=== PATIENT | male | born 1975 | race Caucasian/White ===

== ENCOUNTER → 2016-07-19 | Outpatient (CLI) | payer BC ==
[~2016-07-19] MED LIST: IBUP-1050 PO; NAPR1TAB9 PO; OMEG10007 PO; PRLSR20 PO; RANI150T3 PO
--- NOTE | 2016-07-19 08:38 | DIAGNOSTIC IMAGING REPORT ---
ABDOMEN COMPLETE (US) CLINICAL HISTORY: Abdominal pain. Kidney stones. Nausea. COMPARISON STUDY: No previous studies for comparison. FINDINGS: The liver is echogenic. A hypoechoic focus within the liver in the gallbladder fossa suggests fatty sparing. There is no biliary ductal dilatation. No gallstones are identified. The gallbladder is normal. The pancreas is obscured by overlying bowel gas. The size of the spleen is normal. The right kidney measures 10.7 cm and the left measures 11.2 cm. No calculi are identified by sonography. There is no hydronephrosis. Both ureteral jets were identified. The aorta was largely obscured on this exam. IMPRESSION: 1. Fatty liver. 2. No gallstones or biliary ductal dilatation. 3. No hydronephrosis. 4. Largely obscured pancreas and abdominal aorta. Electronically signed by: Darryl Epstein M.D. 07/19/2016 8:36 AM
[2016-07-19 11:05] LABS: BASO % 0.6 %; BASO ABS # 0.04 K/uL (0-0.2); COMPLETE YES; EOS % 1.7 %; HEMATOCRIT 42.8 % (42-52); IG% 0.8 %; LYMPH % 20.2 %; LYMPH ABS # 1.45 K/uL (1.2-3.4); MEAN CELL VOLUME 89.4 fL (80-100); MEAN CORPUSCULAR HEMOGLOBIN 31.5 pg (25-34); MEAN CORPUSCULAR HGB CONC 35.3 g/dl (32-36); MEAN PLATELET VOLUME 11.5 fL (7.4-10.4); MONO % 9.2 %; NEUT % 67.5 %; PLATELET COUNT 207 K/uL (130-400); RED BLOOD COUNT 4.79 M/uL (4.7-6.1); WHITE BLOOD COUNT 7.18 K/uL (4.8-10.8)
[2016-07-19 11:13] LABS: URINE APPEARANCE CLEAR (CLEAR); URINE BILIRUBIN NEG (NEG); URINE COLOR YELLOW; URINE NITRITE NEG (NEG); URINE PH 5.5 (4.5-7.5); URINE SPECIFIC GRAVITY 1.022 (1.000-1.030); UROBILINOGEN NEG (NEG); ZZUR CULT IF INDIC CLEAN CATCH NO
[2016-07-19 11:27] LABS: MANUAL MICROSCOPIC REQUIRED? NO; REVIEW REQ? NO
[2016-07-19 11:34] LABS: ALT/SGPT 27 U/L (12-78); BLOOD UREA NITROGEN 17 mg/dl (7-18); BUN/CREATININE RATIO 15.5 (10-20); CALCIUM 8.6 mg/dl (8.5-10.1); CARBON DIOXIDE 28 mmol/L (21-32); CHLORIDE 105 mmol/L (98-107); GLUCOSE 87 mg/dl (70-99); POTASSIUM 3.9 mmol/L (3.5-5.1); SODIUM 142 mmol/L (136-145)
[2016-07-19 11:37] LABS: ALB/GLOB RATIO 1.3 (0.9-2); ALKALINE PHOSPHATASE 77 U/L (45-117); AST/SGOT 18 U/L (15-37); CHOLESTEROL 187 mg/dl (0-200); CHOLESTEROL/HDL RATIO 4.5; HDL CHOLESTEROL 42 mg/dl; LDL CHOLESTEROL CALCULATED 124 mg/dl; TRIGLYCERIDES 104 mg/dl (0-150); VERY LOW DENSITY LIPOPROT CALC 21 mg/dl
== END | disposition home or self-care (01) ==
LOC: C.ULTRBC 08:01
PROVIDERS: ATTEND Internal Medicine Geriatric Medicine
DX: Z00.00 Encounter for general adult medical examination without abnormal findings (principal); N20.0 Calculus of kidney; R11.0 Nausea; K76.0 Fatty (change of) liver, not elsewhere classified

== ENCOUNTER → 2016-09-26 | Outpatient (CLI) | payer BC ==
[2016-09-26 13:30] LABS: BASO % 0.4 %; BASO ABS # 0.03 K/uL (0-0.2); COMPLETE YES; EOS % 1.7 %; HEMATOCRIT 46.4 % (42-52); IG% 1.6 %; LYMPH % 21.9 %; LYMPH ABS # 1.64 K/uL (1.2-3.4); MEAN CELL VOLUME 89.4 fL (80-100); MEAN CORPUSCULAR HGB CONC 35.8 g/dl (32-36); MEAN PLATELET VOLUME 11.4 fL (7.4-10.4); MONO % 9.7 %; NEUT % 64.7 %; PLATELET COUNT 219 K/uL (130-400); RED BLOOD COUNT 5.19 M/uL (4.7-6.1); WHITE BLOOD COUNT 7.49 K/uL (4.8-10.8)
[2016-09-26 13:43] LABS: PARTIAL THROMBOPLASTIN RATIO 1.1; PROTHROMBIN TIME (PATIENT) 10.7 SECONDS (9.0-12.0)
[2016-09-26 13:58] LABS: POTASSIUM 3.9 mmol/L (3.5-5.1)
== END | disposition home or self-care (01) ==
LOC: C.LABBC 09:26
DX: Z01.818 Encounter for other preprocedural examination (principal)

== ENCOUNTER → 2016-10-01 | Day surgery (SDC) | payer BC ==
[2016-09-27 09:15] VITALS: Ht 174 cm; Wt 118.2 kg
[~2016-10-01] VITALS: Ht 174 cm; Wt 118.2 kg
[~2016-10-01] MED LIST changes: +ATROPINE SULFATE 0.1 MG/ML 5ML SYR IV PRN; +CEFAZOLIN 2000 MG/60 ML D5W IV SCH; +DEXAMETHASONE SOD INJ 4 MG/ML VIAL ONE; +EpHEDrine SULFATE INJ 50 MG/ML AMP IV PRN; +EpINEphrine INJ 1MG/ML AMP 1 MG/ML AMP ONE; +FENTANYL CITRATE INJ 50 MCG/1 ML 2 ML VIAL IV PRN; +FENTANYL CITRATE INJ 50 MCG/1 ML 2 ML VIAL ONE; +HYDROCODONE/ACETAMOPHEN 5/325MG TAB PO PRN; +HydrALAZINE HCL 20 MG/ML VIAL IV. PRN; +HydrALAZINE HCL 20 MG/ML VIAL ONE; +LACTATED RINGER'S 1000ML 1,000 ML IV SCH; +LIDOCAINE 4% MPF SOAK 5 ML = 1 DOSE TOP ONE; +LIDOCAINE HCL 2% 2 ML VIAL (20MG/ML) ONE; +LIDOCAINE/EPINEPHRINE 1% INJ 50 ML VIAL ONE; +MIDAZOLAM HCL 1 MG/ML 2ML VIAL ONE; -OMEG10007 PO; +ONDANSETRON INJ 2 MG/ML 2 ML VIAL IV PRN; +ONDANSETRON INJ 2 MG/ML 2 ML VIAL ONE; +OXYMETAZOLINE HCL 0.05% NA SPR 15 ML BTL PRN; +OXYMETAZOLINE HCL 0.05% NA SPR 15 ML BTL SCH; +PROPOFOL IV EMULSION 10 MG/ML 20 ML VIAL IV ONE; -RANI150T3 PO; +STERILE IRRIGATING SOLUTION (BSS) 15ML FLUSH ONE
--- NOTE | 2016-10-01 11:45 | History & Physical Bridge - [place] ---
H&P Re-Evaluation Bridge Note: I have examined the patient, reviewed the History & Physical and in the interval since the performance of the History & Physical I have noted the following changes of clinical significance: No changes noted
--- NOTE | 2016-10-01 13:47 | [facility] Operative Report ---
Operative Report Operative Date Oct 01, 2016. Pre-Operative Diagnosis Deviated Nasal Septum, Hypertrophy of Inferior Nasal Turbinates Post-Operative Diagnosis Same Procedure(s) Performed Septoplasty And Bilateral Inferior Turbinate Outfracture And Turbinoplasty Surgeon Dr. Thomas Dbas Surgeon(s) None Estimated Blood Loss 25 mL Findings 1. SEVERE LEFT ANTERIOR SEPTAL DEVIATION WITH EXTENSIVE SCARRING INVOLVING THIS REGION 2. R>L INFERIOR TURBINATE HYPERTROPHY Specimens None I attest to the content of the Intraoperative Record and any orders documented therein. Any exceptions are noted below.
--- NOTE | 2016-10-01 13:48 | Discharge Instructions ---
Discharge Instructions Date of Service Oct 01, 2016. Admission Reason for Admission: Deviated Septum, Hypertrophy Inferior Nasal Turbs Discharge Discharge Diagnosis / Problem: SAME Discharge Goals Goal(s): Improve function Activity Recommendations Activity Limitations: as noted below LIGHT ACTIVITY FOR 2WEEKS; NO NOSE BLOWING FOR 2WEEKS; NO DRIVING WHILE ON NARCOTIC PAIN MEDS . Current Hospital Diet Patient's current hospital diet: Discharge Diet Recommended Diet: Regular Diet Procedures Procedures Performed: Septoplasty And Bilateral Inferior Turbinate Outfracture And Turbinoplasty Pending Studies Studies pending at discharge: no Laboratory Results Lipid Panel Test 07/19/16 08:32 Range/Units Triglycerides Level 104 0-150 mg/dl Cholesterol Level 187 0-200 mg/dl HDL Cholesterol 42 mg/dl Cholesterol/HDL Ratio 4.5 LDL Cholesterol, Calculated 124 mg/dl Medical Emergencies . Who to Call and When: Medical Emergencies: If at any time you feel your situation is an emergency, please call 911 immediately. . Non-Emergent Contact Non-Emergency issues call your: Surgeon . . "Provider Documentation" section prepared by Matthew Thomas. VTE Core Measure Inpt VTE Proph given/why not?: SCD's
[2016-10-01 14:21] VITALS: TEMP 36.4
[2016-10-01 14:58] VITALS: BP 132/83; PULSE 83; O2SAT 98
--- NOTE | 2016-10-01 15:03 | Anesthesia Progress Nt - [facility] ---
Anesthesia Post Op Note Date & Time Oct 01, 2016 at 15:03 Vital Signs Pain Intensity: 3.0 Vital Signs Past 12 Hours Date Time Temp Pulse Resp B/P Pulse Ox O2 Delivery O2 Flow Rate FiO2 10/01/16 14:21 36.4 97 16 133/56 94 Room Air 10/01/16 14:20 79 14 115/79 95 10/01/16 14:17 88 18 10/01/16 14:17 87 18 94 10/01/16 14:17 36.4 10/01/16 14:15 127/87 10/01/16 14:12 85 15 93 10/01/16 14:12 87 15 10/01/16 14:10 121/87 10/01/16 14:07 91 20 10/01/16 14:07 92 20 95 10/01/16 14:05 141/84 10/01/16 14:02 85 13 97 10/01/16 14:02 83 13 10/01/16 14:00 158/95 10/01/16 13:58 159/106 10/01/16 13:57 88 21 10/01/16 13:57 87 21 99 10/01/16 13:55 149/104 10/01/16 13:52 88 25 99 10/01/16 13:52 86 25 10/01/16 13:50 147/98 10/01/16 13:47 90 16 10/01/16 13:47 90 16 99 10/01/16 13:45 36.6 95 16 160/99 100 Humidified Oxygen 6 Diffusion Mask 10/01/16 11:09 36.8 63 16 151/81 96 Room Air Notes Mental Status: alert / awake / arousable, participated in evaluation Pt Amnestic to Procedure: Yes Nausea / Vomiting: adequately controlled Pain: adequately controlled Airway Patency, RR, SpO2: stable & adequate BP & HR: stable & adequate Hydration State: stable & adequate Anesthetic Complications: no major complications apparent
--- NOTE | 2016-10-01 16:34 | OPERATIVE REPORT ---
DATE OF OPERATION: 10/01/2016 PREOPERATIVE DIAGNOSIS: 1. Left septal deviation. 2. Right greater than left inferior turbinate hypertrophy. POSTOPERATIVE DIAGNOSES: 1. Left septal deviation. 2. Right greater than left inferior turbinate hypertrophy. PROCEDURES: 1. Septoplasty. 2. Bilateral inferior turbinate outfracture and turbinoplasty. SURGEON: Matthew Thomas MD ANESTHESIA: General endotracheal. ESTIMATED BLOOD LOSS: 25 mL. FINDINGS: 1. Severe left anterior septal deviation with extensive scar tissue involving the left anterior septum. 2. Right greater than left inferior turbinate hypertrophy. SPECIMENS: None. COMPLICATIONS: None. INDICATIONS FOR PROCEDURE: The patient is a 41-year-old male who has a history of multiple nasal fractures in the past status post closed reduction of a nasal fracture at age 17 and possible septoplasty at that time. The patient has left greater than right nasal airway obstruction which inhibits his ability to tolerate his CPAP for obstructive sleep apnea. He was found to have severe left anterior septal deviation. He presents for the above-mentioned procedure on an outpatient elective basis. DESCRIPTION OF PROCEDURE: After informed consent had been obtained from the patient, the patient was wheeled to the operating room and placed on the operating table in the supine position. Monitors were placed. After induction of general endotracheal anesthesia, the patient's abdomen was prepped in usual fashion for septoplasty. A total of 6 mL of 1% lidocaine with 1:100,000 epinephrine was used to inject the mucosa and submucosa on either side of the septum, thereby performing hydrodissection of the mucoperichondrial and mucoperiosteal flaps bilaterally. Lidocaine and Afrin pledgets were then placed in bilateral nasal cavities and pressure applied. A #15 scalpel was then used to make a left hemitransfixion incision through which the left-sided mucoperichondrial and mucoperiosteal flap was elevated. A #15 scalpel was then used to incise the quadrangular cartilage with care to preserve a 1.5 cm dorsal and caudal strut and the right side, a mucoperichondrial and mucoperiosteal flap was elevated through this cartilaginous incision. Of note, the mucoperichondrial and mucoperiosteal flaps were difficult to elevate due to extensive fibrosis, likely from prior surgery in this region as well as his previous trauma to the area. Small pieces of septal cartilage were removed using a Radhika silver knife. There was still some anterior septal deviation to the left hand side involving the caudal strut and the cartilage was weakened by crosshatching the cartilage with a 15 scalpel. The septal cavity was then suctioned. The left hemitransfixion incision was closed with several simple interrupted 4-0 chromic sutures. A 2-0 chromic suture in a half mattress fashion was then used to perform a columelloplasty to straighten out the patient's columella as well as the most anterior septal deviation. This resulted in the septum being midline. A 4-0 plain gut suture and a Lee needle was then used to perform a quilting stitch of the mucoperichondrial and mucoperiosteal flaps bilaterally to help prevent septal hematoma. A Anthony elevator was then used to infracture and subsequently outfractured the inferior turbinates bilaterally. A 3 mL of 1% lidocaine with 1:100,000 epinephrine was then used to inject the inferior turbinates bilaterally. A 2.0 mm turbinate by using powered instrumentation was then used to perform bilateral inferior turbinoplasties in a submucosal fashion. The nasal cavities and nasopharynx were then suctioned. An orogastric tube was placed and the stomach was suctioned free of air and stomach contents. This marked the end of the case. The patient tolerated the procedure well with no apparent complications. The patient was extubated and transferred to recovery room in stable condition. I attest to the content of the Intraoperative Record and any orders documented therein. Any exceptio ns are noted below.
== END | disposition home or self-care (01) ==
LOC: X.SURG 10:45
DX: J34.2 Deviated nasal septum (principal); J34.3 Hypertrophy of nasal turbinates; G47.33 Obstructive sleep apnea (adult) (pediatric); K76.0 Fatty (change of) liver, not elsewhere classified; Z72.0 Tobacco use

== ENCOUNTER → 2017-08-01 | Outpatient (CLI) | payer BC ==
[~2017-08-01] MED LIST changes: -ATROPINE SULFATE 0.1 MG/ML 5ML SYR IV PRN; -CEFAZOLIN 2000 MG/60 ML D5W IV SCH; -DEXAMETHASONE SOD INJ 4 MG/ML VIAL ONE; -EpHEDrine SULFATE INJ 50 MG/ML AMP IV PRN; -EpINEphrine INJ 1MG/ML AMP 1 MG/ML AMP ONE; -FENTANYL CITRATE INJ 50 MCG/1 ML 2 ML VIAL IV PRN; -FENTANYL CITRATE INJ 50 MCG/1 ML 2 ML VIAL ONE; -HYDROCODONE/ACETAMOPHEN 5/325MG TAB PO PRN; -HydrALAZINE HCL 20 MG/ML VIAL IV. PRN; -HydrALAZINE HCL 20 MG/ML VIAL ONE; -IBUP-1050 PO; -LACTATED RINGER'S 1000ML 1,000 ML IV SCH; -LIDOCAINE 4% MPF SOAK 5 ML = 1 DOSE TOP ONE; -LIDOCAINE HCL 2% 2 ML VIAL (20MG/ML) ONE; -LIDOCAINE/EPINEPHRINE 1% INJ 50 ML VIAL ONE; -MIDAZOLAM HCL 1 MG/ML 2ML VIAL ONE; -NAPR1TAB9 PO; -ONDANSETRON INJ 2 MG/ML 2 ML VIAL IV PRN; -ONDANSETRON INJ 2 MG/ML 2 ML VIAL ONE; -OXYMETAZOLINE HCL 0.05% NA SPR 15 ML BTL PRN; -OXYMETAZOLINE HCL 0.05% NA SPR 15 ML BTL SCH; -PROPOFOL IV EMULSION 10 MG/ML 20 ML VIAL IV ONE; -STERILE IRRIGATING SOLUTION (BSS) 15ML FLUSH ONE
[2017-08-01 11:42] LABS: ALBUMIN 3.9 gm/dl (3.4-5.0); ALT/SGPT 31 U/L (12-78); AST/SGOT 17 U/L (15-37); BLOOD UREA NITROGEN 17 mg/dl (7-18); CALCIUM 8.7 mg/dl (8.5-10.1); CARBON DIOXIDE 29 mmol/L (21-32); CREATININE 1.23 mg/dl (0.60-1.40); GLUCOSE 139 mg/dl (70-99); POTASSIUM 3.9 mmol/L (3.5-5.1); SODIUM 136 mmol/L (136-145)
[2017-08-01 11:45] LABS: ALKALINE PHOSPHATASE 88 U/L (45-117); CHOLESTEROL 179 mg/dl (0-200); LDL CHOLESTEROL CALCULATED 99 mg/dl; TOTAL PROTEIN 7.8 gm/dl (6.4-8.2)
== END | disposition home or self-care (01) ==
LOC: C.LABBC 08:13
PROVIDERS: ATTEND Internal Medicine
DX: G47.33 Obstructive sleep apnea (adult) (pediatric) (principal); K76.0 Fatty (change of) liver, not elsewhere classified; Z68.39 Body mass index [BMI] 39.0-39.9, adult; I10 Essential (primary) hypertension

== ENCOUNTER → 2017-08-19 | Outpatient (CLI) | payer BC ==
[2017-08-20 05:39] LABS: HEMOGLOBIN A1C 5.7 % (4.5-5.6)
== END | disposition home or self-care (01) ==
LOC: C.LABPBG 13:49
PROVIDERS: ATTEND Internal Medicine
DX: R73.9 Hyperglycemia, unspecified (principal)